=== PATIENT | male | born 1950 | race Caucasian/White ===

== ENCOUNTER → 2018-11-25 12:39 | Outpatient (CLI) | payer OTHER, SELFPAY ==
--- NOTE | 2018-11-25 | DI.ECHO.S_ITS ---
[facility] +---------+ : : [address] : : : : [id number] : : : : Phone: [phone] Echocardiogram Report + + :Name: SALMA BERNAL Study Date: 11/25/2018 Height: 70 in : :[facility] Weight: 166 lb : : Gender: Male BSA: 1.9 m2 : :: 1950 Age: 68 yrs BP: 128/82 mmHg: :Reason For Study: Aortic, Ascending Aneurysm : : Performed By: Sade Flannery : :Referring: LISANDRA HUA : + + Interpretation Summary The ejection fraction is estimated to be 60-65%. The calculated aortic valve area is 1.6 cm2. There is mild aortic stenosis. Leaflet mobility is mildly reduced. There is mild tricuspid regurgitation. The right ventricular systolic pressure is estimated to be at least 28 mmHg based on an estimated right atrial pressure of 3 mm Hg. The ascending aorta is mild-moderately enlarged. Procedure: A two-dimensional transthoracic echocardiogram with color flow and Doppler was performed. The study quality was technically good. There is no prior echocardiogram noted for this patient. The patient was in normal sinus rhythm during the exam. Left Ventricle: The left ventricle is normal in size, wall thickness, and systolic function without any focal wall motion abnormalities. The ejection fraction is estimated to be 60-65%. Left ventricular wall motion is normal. Diastolic parameters suggest probable normal left ventricular diastolic function and normal filling pressures. Right Ventricle: The right ventricle grossly appears normal in size with probable normal systolic function. Atria: The left atrium is moderately dilated. Right atrial size is normal. The interatrial septum is intact with no evidence for an atrial septal defect. Mitral Valve: There is mild mitral regurgitation. Aortic Valve: The aortic valve is trileaflet. The aortic valve is moderately calcified. Leaflet mobility is mildly reduced. There is discrete nodular thickening of the right coronary cusp. The aortic valve area is 2.7 centimeters squared by planimetry. The calculated aortic valve area is 1.6 cm2. The peak aortic velocity is 1.9 m/sec. There is mild aortic stenosis. There is mild aortic regurgitation. Tricuspid Valve: The tricuspid valve leaflets are thickened and/or calcified, but open well. There is mild tricuspid regurgitation. The right ventricular systolic pressure is estimated to be at least 28 mmHg based on an estimated right atrial pressure of 3 mm Hg. Pulmonic Valve: The pulmonic valve is not well visualized. There is trace pulmonic regurgitation. Great Vessels: The aortic root is borderline dilated. The ascending aorta is mild-moderately enlarged. The aortic arch is normal in size. The IVC is of normal diameter and collapses greater than 50% with a sniff. This suggests a low right atrial pressure of 3 mm Hg. Pericardium/ Pleura There is no pericardial effusion. There is no pleural effusion. MMode/2D Measurements & Calculations LVIDd: 4.8 cm LVOT diam: 2.2 cm LVIDs: 3.3 cm Ao root diam: 3.8 cm FS: 32.6 % Aortic Jxn: 3.6 cm EPSS: 0.91 cm asc Aorta Diam: 4.1 cm IVSd: 0.99 cm Ao Arch Diam (Prox Trans): 2.6 cm LVPWd: 0.97 cm LV mims. diameter/BSA (cm/m^2): 2.5 LV sys. diameter/BSA (cm/m^2): 1.7 LA dimension: 3.9 cm RA long axis: 5.2 cm LA A2 area: 24.4 cm2 RA area: 18.2 cm2 LA A4 area: 21.8 cm2 RA vol: 53.7 ml LA length (vol): 5.2 cm RA : 27.8 ml/m2 LA vol: 87.0 ml IVC diam: 1.7 cm LA vol index: 45.1 ml/m2 RVDd major: 6.2 cm RVD1 (basal): 3.8 cm RVD2 (mid): 3.5 cm ELIAS (plan): 2.7 cm2 Doppler Measurements & Calculations Ao V2 max: 194.4 cm/sec LVOT Max Yasmani: 76.2 cm/sec Ao V2 mean: 125.1 cm/sec LV V1 max P.3 mmHg Ao max P.1 mmHg LV V1 VTI: 17.6 cm Ao mean P.4 mmHg ELIAS(I,D): 1.6 cm2 Ao V2 VTI: 43.7 cm ELIAS(V,D): 1.5 cm2 sev ratio: 0.40 ELIAS indexed to BSA (cm^2/m^2): 0.81 MV E max yasmani: 60.7 cm/sec TR max yasmani: 248.4 cm/sec MV A max yasmani: 50.1 cm/sec TR max P.7 mmHg MV E/A: 1.2 PA V2 max: 104.1 cm/sec Med Peak E' Yasmani: 8.1 cm/sec PA V2 mean: 67.4 cm/sec E/E' med: 7.5 PA mean P.2 mmHg Lat Peak E' Yasmani: 10.4 cm/sec E/E' lat: 5.8 E/e' average: 6.7 MV dec time: 0.19 sec MV P1/2t: 39.1 msec MV P1/2t max yasmani: 82.0 cm/sec SV(LVOT): 68.0 ml MVA(P1/2t): 5.6 cm2 Reading Physician:04:06 PM
== END ==
PROVIDERS: PCP Family Medicine; Visit Provider Internal Medicine Cardiovascular Disease
DX: I08.3 Combined rheumatic disorders of mitral, aortic and tricuspid valves (principal); I71.2 Thoracic aortic aneurysm, without rupture
CPT/HCPCS: 93306

== ENCOUNTER 2020-12-20 00:13 | Observation (INO) | payer MEDICARE, OTHER, SELFPAY ==
[2020-12-20] VITALS (15 sets, daily range): BP systolic 120–143; BP diastolic 67–82; PULSE 67–74; RESP 15–20; TEMP 36.2–37.5; O2SAT 94–100; BMI 23.6
--- NOTE | 2020-12-20 00:18 | ED_ITS ---
HPI - Extremity Problem General Chief complaint: Skin/Abscess/Foreign Body Stated complaint: staph infection left leg Time Seen by Provider: 12/20/20 00:18 Source: patient and family Mode of arrival: Wheelchair Limitations: no limitations History of Present Illness HPI Narrative: 70M nonsmoker with history of hypertension presents with family friend and a chief complaint of worsening left lower extremity pain, redness, swelling along with fever and chills. He developed these symptoms initially about a week ago and was seen by primary care provider out in [place] and initiated treatment for presumed cellulitis and was placed on Augmentin. Additionally he had a ultrasound prior to getting on a plane and flying back to [place]. His symptoms are significantly worse now despite outpatient therapies. He denies any runny nose, sore throat or cough. He has no chest pain or shortness of breath. His pain is worse with ambulation and improves with rest Related Data Home Medications Medication Instructions Recorded Confirmed amlodipine 10 mg PO DAILY 12/20/20 12/20/20 hydrochlorothiazide 25 mg PO DAILY 12/20/20 12/20/20 losartan 100 mg PO DAILY 12/20/20 12/20/20 metoprolol succinate 50 mg PO DAILY 12/20/20 12/20/20 Allergies Allergy/AdvReac Type Severity Reaction Status Date / Time No Known Drug Allergies Allergy Verified 12/20/20 00:29 Review of Systems Constitutional Constitutional: Reports chills, Denies fatigue, Reports fever(s), Denies frequent falls, Denies lethargy and Denies weakness Eyes Eyes: Denies change in vision, Denies eye discharge, Denies irritation and Denies loss of vision ENT Ears, Nose, Mouth, and Throat: Denies change in voice, Denies dizziness, Denies neck pain, Denies sore throat and Denies throat swelling Cardiovascular Cardiovascular: Denies chest pain, Denies irregular heart rhythm, Denies ligh theadedness, Denies palpitations, Denies dyspnea, Denies dyspnea on exertion and Denies orthopnea Respiratory Respiratory: Denies cough, Denies dyspnea, Denies dyspnea on exertion and Denies wheezing Gastrointestinal Gastrointestinal: Denies abdominal pain, Denies change in bowel habits, Denies diarrhea, Denies nausea and Denies vomiting Musculoskeletal Musculoskeletal: Denies neck pain and Denies numbness Integumentary/Breasts Skin/Breast: Denies pruritus, Reports erythema, Denies rash, Reports skin pain, Reports skin swelling and Denies wounds Neurologic Neurologic: Denies behavioral changes, Denies confusion, Denies dizziness, Denies frequent falls, Denies loss of vision, Denies numbness and Denies weakness Psychiatric Psychiatric: Denies anxiety, Denies behavioral changes, Denies confusion, Denies depression, Denies homicidal ideation and Denies suicidal ideation Endocrine Endocrine: Denies fatigue, Denies flushing and Denies palpitations Hematologic/Lymphatic Hematologic/Lymphatic: Denies easy bruising Allergic/Immunologic Allergic/Immunologic: Denies urticaria, Denies throat swelling and Denies wheezing Patient History Social History Smoking Status: Never smoker Smoking Status: Never smoker Exam Narrative Exam Narrative: GENERAL: [70] year old patient appears stated age. Well- nourished, well-developed patient, in mild distress. HEAD: Atraumatic. Normocephalic. EYES: Pupils equal round and reactive. Extraocular motions intact. No scleral icterus. No injection or drainage. ENT: Nose without bleeding, purulent drainage. Throat without erythema, tonsillar hypertrophy or exudate. Airway patent. NECK: Trachea midline. Non tender CARDIOVASCULAR: Regular rate and rhythm without murmurs, gallops, or rubs. RESPIRATORY: Clear to auscultation. Breath sounds equal bilaterally. No wheezes, rales, or rhonchi. GASTROINTESTINAL: Abdomen soft, non-tender, nondistended. EXTREMITIES: Left lower extremity with extensive circumferential erythema, warmth, swelling below the knee and including the foot.. BACK: Nontender without deformity or crepitance. No flank tenderness. NEURO: AOx3. 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) Stat Acetaminophen (Acetaminophen 325 Mg Tablet) 650 mg PO Q6HR PRN PRN Reason: Fever/Mild Pain (1-3) Hydrocodone Bitart/Acetaminophen (Hydrocodone/Acet 5/325 Tablet) 1 tab PO Q4HR PRN PRN Reason: Pain, Moderate (4-6) Al Hydrox/Mg Hydrox/Simethicone (Mag Hydrox/Alum/Simeth 30 Ml Udc) 30 ml PO Q6HR PRN PRN Reason: Dyspepsia Docusate Sodium (Docusate 100 Mg Capsule) 100 mg PO BID PRN PRN Reason: Constipation Enoxaparin Sodium (Enoxaparin 40 Mg/0.4 Ml Syringe) 40 mg SUBCUT DAILY MUNA Sodium Chloride (Normal Saline 0.9%) 1,000 mls @ 125 mls/hr IV CONT MUNA Last Infusion: 12/20/20 01:37 Dose: 0 mls/hr Documented by: Admin: 12/20/20 00:43 Dose: 125 mls/hr Documented by: MARILU Vancomycin HCl/Dextrose (Vancomycin) 1,500 mg in 300 mls @ 200 mls/hr IV NOW ONE Stop: 12/20/20 01:57 Last Infusion: 12/20/20 01:37 Dose: 0 mls/hr Documented by: Admin: 12/20/20 00:43 Dose: 200 mls/hr Documented by: MARILU Lactated Ringer's (Lactated Ringers) 1,000 mls @ 100 mls/hr IV CONT MUNA Ketorolac Tromethamine (Ketorolac 10 Mg Tablet) 10 mg PO Q6HR PRN PRN Reason: Pain, Moderate (4-6) Stop: 12/25/20 01:26 Naloxone HCl (Naloxone 0.4 Mg/Ml Vial) 0.2 mg IV Q2MIN PRN PRN Reason: Opiate Reversal Ondansetron HCl (Ondansetron 4 Mg Odt) 4 mg PO Q8HR PRN PRN Reason: Nausea And Vomiting Sennosides (Sennosides 8.6 Mg Tablet) 17.2 mg PO BEDTIME PRN PRN Reason: Constipation Discontinued Medications Potassium Chloride (Potassium Chloride 20 Meq/15 Ml Udc) 40 meq PO NOW ONE Stop: 12/20/20 01:28 Consultations Consultation #1: call to hospitalist Time: 00:50 Vital Signs Vital signs: Vital Signs - 8 hr 12/20/20 00:26 Temperature 99.4 F Pulse Rate 71 Respiratory Rate 18 Blood Pressure 143/79 H Pulse Oximetry 100 MDM - Extremity (Nontraumatic) Lab Data Result diagrams: 12/20/20 00:30 12/20/20 00:30 Labs: Lab Results 12/20/20 12/20/20 12/20/20 Range/Units 00:30 00:30 00:30 WBC 8.8 (4.5-11.0) X10^3/uL RBC 4.42 L (4.5-5.9) X10^6/uL Hgb 14.3 (13.5-17.5) g/dL Hct 39.9 L (41-53) % MCV 90.2 (80-100) fL MCH 32.3 (26-34) PG MCHC 35.8 (30-36) % RDW 12.9 (11.6-14.8) % Plt Count 203 (150-400) X10^3/uL Neut % (Auto) 72.3 (50-75) % Lymph % (Auto) 16.0 L (25-40) % [place] % (Auto) 8.4 (3-14) % Eos % (Auto) 2.2 (2-4) % Baso % (Auto) 1.1 (0-2) % Neut # (Auto) 6400 (1115-5570) /uL Lymph # (Auto) 1400 (0030-7366) /uL [place] # (Auto) 700 (0-900) /uL Eos # (Auto) 200 (0-450) /uL Baso # (Auto) 100 (0-100) /uL D-Dimer 390 H (<230) ng/mL Sodium 135 L (137-145) mmol/L Potassium 3.2 L (3.4-5.1) mmol/L Chloride 100 (98-107) mmol/L Carbon Dioxide 27 (22-32) mmol/L BUN 27 H (9-20) mg/dL Creatinine 0.80 (0.66-1.25) mg/dL Estimated GFR > 60.0 (>60) mL/min BUN/Creatinine Ratio 33.8 H (6-22) Glucose 125 H (80-110) mg/dL Lactate (0.7-2.1) mmol/L Calcium 8.9 (8.4-10.2) mg/dL Total Bilirubin 0.6 (0.2-1.3) mg/dL AST 59 (17-59) IU/L ALT 55 H (<50) IU/L Alkaline Phosphatase 101 (38-126) U/L Total Protein 7.0 (6.3-8.2) g/dL Albumin 3.6 (3.5-5.0) g/dL Globulin 3.4 (1.7-4.1) g/dL Albumin/Globulin Ratio 1.1 (1.0-2.8) SARS-CoV-2 (PCR) (Negative) 12/20/20 12/20/20 Range/Units 00:30 00:40 WBC (4.5-11.0) X10^3/uL RBC (4.5-5.9) X10^6/uL Hgb (13.5-17.5) g/dL Hct (41-53) % MCV (80-100) fL MCH (26-34) PG MCHC (30-36) % RDW (11.6-14.8) % Plt Count (150-400) X10^3/uL Neut % (Auto) (50-75) % Lymph % (Auto) (25-40) % [place] % (Auto) (3-14) % Eos % (Auto) (2-4) % Baso % (Auto) (0-2) % Neut # (Auto) (5734-4585) /uL Lymph # (Auto) (8269-2044) /uL [place] # (Auto) (0-900) /uL Eos # (Auto) (0-450) /uL Baso # (Auto) (0-100) /uL D-Dimer (<230) ng/mL Sodium (137-145) mmol/L Potassium (3.4-5.1) mmol/L Chloride (98-107) mmol/L Carbon Dioxide (22-32) mmol/L BUN (9-20) mg/dL Creatinine (0.66-1.25) mg/dL Estimated GFR (>60) mL/min BUN/Creatinine Ratio (6-22) Glucose (80-110) mg/dL Lactate 0.8 (0.7-2.1) mmol/L Calcium (8.4-10.2) mg/dL Total Bilirubin (0.2-1.3) mg/dL AST (17-59) IU/L ALT (<50) IU/L Alkaline Phosphatase (38-126) U/L Total Protein (6.3-8.2) g/dL Albumin (3.5-5.0) g/dL Globulin (1.7-4.1) g/dL Albumin/Globulin Ratio (1.0-2.8) SARS-CoV-2 (PCR) Negative (Negative) MDM Narrative Medical decision making narrative: Patient has significantly worsening symptoms, including systemic complaints such as fever and chills despite being on what would be considered appropriate outpatient therapy Patient requires admission for IV antibiotics and stabilization of his condition Discharge Plan Departure Patient Disposition: Admitted as Observation Clinical Impression: Cellulitis Qualifiers: Site of cellulitis: extremity Site of cellulitis of extremity: lower extremity Laterality: left Qualified Code(s): L03.116 - Cellulitis of left lower limb Admit Date/Time: 12/20/20 01:21 Admit Provider: Josselin Villarreal
[2020-12-20 00:38] LABS: Basophils Absolute Auto 100 /uL (0-100); Eosinophils Absolute Auto 200 /uL (0-450); Lymphocytes Absolute Auto 1400 /uL (1100-4500); Monocytes Absolute Auto 700 /uL (0-900); Neutrophils Absolute Auto 6400 /uL (1500-7000); White Blood Cell Count 8.8 X10^3/uL (4.5-11.0)
[2020-12-20] MEDS: SODIUM CHLORIDE 0.9% 1,000 ML 125 ML IV (00:43)
[2020-12-20] MEDS: VANCOMYCIN 1,500 MG/300 ML PIGGYBACK 200 MG IV (00:43)
[2020-12-20 00:48] LABS: D Dimer 390 ng/mL (<230)
[2020-12-20 00:50] LABS: Add Manual Diff / Slide Review NO; Alanine Aminotransferase 55 IU/L (<50); Albumin 3.6 g/dL (3.5-5.0); Albumin Globulin Ratio 1.1 (1.0-2.8); Alkaline Phosphatase 101 U/L (38-126); Aspartate Aminotransferase 59 IU/L (17-59); BUN Creatinine Ratio 33.8 (6-22); Basophils Percent Auto 1.1 % (0-2); Bilirubin Total 0.6 mg/dL (0.2-1.3); Blood Urea Nitrogen 27 mg/dL (9-20); Calcium 8.9 mg/dL (8.4-10.2); Carbon Dioxide 27 mmol/L (22-32); Chloride 100 mmol/L (98-107); Eosinophils Percent Auto 2.2 % (2-4); Estimated Glomerular Filt Rate > 60.0 mL/min (>60); Globulin 3.4 g/dL (1.7-4.1); Glucose 125 mg/dL (80-110); HEMOLYSIS < 15 (0-50); Hematocrit 39.9 % (41-53); Hemoglobin 14.3 g/dL (13.5-17.5); Lactate (Lactic Acid) 0.8 mmol/L (0.7-2.1); Mean Corpuscular HGB Conc 35.8 % (30-36); Mean Corpuscular Hemoglobin 32.3 PG (26-34); Mean Corpuscular Volume 90.2 fL (80-100); Monocytes Percent Auto 8.4 % (3-14); Neutrophils Percent Auto 72.3 % (50-75); Platelet Count 203 X10^3/uL (150-400); Potassium 3.2 mmol/L (3.4-5.1); Red Blood Cell Count 4.42 X10^6/uL (4.5-5.9); Red Cell Distribution Width 12.9 % (11.6-14.8); Sodium 135 mmol/L (137-145)
[2020-12-20 01:35] LABS: COVID19 - ADMIT (NP swab/PCR) Negative (Negative)
[2020-12-20 01:49] LABS: C-Reactive Protein Quant 5.3 mg/dL (<1.0); Creatine Kinase 29 U/L (55-170)
[2020-12-20 02:04] LABS: Erythrocyte Sedimentation Rate 48 MM/HR (0-15)
--- NOTE | 2020-12-20 02:08 | PM.HP.1 ---
History of Present Illness History of Present Illness Date Patient Seen: 12/20/20 Time Patient Seen: 01:29 Chief complaint: staph infection left leg Narrative: Patient is a 70-year-old male Andrew Jose presented to the ED with a family friend with a chief complaint of worsening left lower extremity pain, redness, swelling along with fever and chills. He developed these symptoms initially and was seen by primary care provider on 12/15/2020 in [place] at his vacation home and initiated treatment for presumed cellulitis and was placed on Augmentin (5days). Additionally he had a ultrasound prior to getting on a plane and flying back to [place] which was negative for DVT. His symptoms continued to significantly worsen now despite outpatient therapies. Patient notes that the swelling has continued to increase and the lower leg began turning purplish in color yesterday. He denies any nasal drainage, sore throat, cough, fever, body aches, chills, chest pain or shortness of breath at this time. His pain is worse with ambulation and improves with rest. Patient current lease denies pain while resting bed. Patient has only a history of essential hypertension. Patient's vitals upon admit temp 99.4?, BP 143/79, HR 71, RR 18, O2 saturation 100% on room air. Patient's labs HCT 39.9, sodium 135, potassium 3.2, BUN 27, glucose 125, BUN creatinine ratio 33.8, ALT 55, D-dimer 390. Patient being admitted with left lower leg cellulitis after failing outpatient management, and hypokalemia. Patient History Medical History Essential hypertension Surgical History History of surgical fusion joint Family & Social History Family History (Updated 12/20/20 @ 04:07 by ROBERTO Contreras) Mother Hypertension Father Mesothelioma Sister Hypertension Tobacco & Substance use: Patient lives with his partner on [facility] and has a home in [place]. Patient is a retired middle school director. Smoking Status stop smoking 40 years ago Regularly eats THC edibles for sleep A glass a wine with dinner daily Meds Home Medications and Allergies Home Medications Medication Instructions Recorded Confirmed Type amlodipine 10 mg PO DAILY 12/20/20 12/20/20 History hydrochlorothiazide 25 mg PO DAILY 12/20/20 12/20/20 History losartan 100 mg PO DAILY 12/20/20 12/20/20 History metoprolol succinate 50 mg PO DAILY 12/20/20 12/20/20 History Allergies Allergy/AdvReac Type Severity Reaction Status Date / Time No Known Drug Allergies Allergy Verified 12/20/20 00:29 Review of Systems Review of Systems ROS: Yes All systems reviewed with the patient and are negative except as otherwise documented Musculoskeletal Musculoskeletal: Reports limited range of motion Integumentary/Breasts Skin/Breast: Reports change in pigmentation (Left lower leg), Reports erythema, Reports skin pain and Reports skin swelling Exam Vital Signs (past 8 hours): - 12/20/20 00:26 12/20/20 01:54 Temperature 99.4 F Pulse Rate 71 Respiratory Rate 18 Blood Pressure 143/79 H Pulse Oximetry 100 99 Oxygen Delivery Method Room Air Oxygen Flow Rate 0 Narrative Exam Narrative: General: Patient is a delightful well-developed, well-nourished male in no distress at this time. HEENT: Normocephalic, atraumatic, extraocular muscles intact, oral pharynx is clear and mucous membranes are moist. Neck is supple and symmetric, trachea is midline, no adenopathy, no thyroid enlargement, nontender, no masses palpated. Negative for JVD Chest: Normal AP diameter and contour without kyphoscoliosis, no nasal flaring, retractions, or tachypneic labored Lungs: Auscultation of all lung chahal are clear without adventitious sounds, wheezes, rhonchi, or rales. Cardio: S1 & S2 with regular rate and rhythm without murmur, rubs, or gallops, no carotid bruit, no cardiac pulsations present. Abdomen: Soft nontender, negative for organomegaly, or masses. Bowel sounds are present in all 4 quadrants without guarding or rebound, no CVA tenderness. Musculoskeletal: Muscle strength normal. Full range of motion intact radial and pedal pulses are normal. Patient has noted cellulitis clear demarcation just below left knee down to left ankle, dark purple in color non blanchable noted inflammation that encompasses the lower left knee down to include left foot. Closed without noted drainage or exudate present at this time. Neuro: Alert and orientated x3, strength is +5/5 in all extremities, sensation to touch intact, no gross deficits noted of cranial nerves. Psych: Patient has a well-kept appearance, appropriate affect, mental status attitude thought context and judgment are appropriate for age. Objective Labs Result Diagrams: 12/20/20 00:30 12/20/20 00:30 Labs: Laboratory Results - last 24 hr 12/20/20 12/20/20 12/20/20 00:30 00:30 00:30 WBC 8.8 RBC 4.42 L Hgb 14.3 Hct 39.9 L MCV 90.2 MCH 32.3 MCHC 35.8 RDW 12.9 Plt Count 203 Neut % (Auto) 72.3 Lymph % (Auto) 16.0 L [place] % (Auto) 8.4 Eos % (Auto) 2.2 Baso % (Auto) 1.1 Neut # (Auto) 6400 Lymph # (Auto) 1400 [place] # (Auto) 700 Eos # (Auto) 200 Baso # (Auto) 100 ESR D-Dimer 390 H Sodium 135 L Potassium 3.2 L Chloride 100 Carbon Dioxide 27 BUN 27 H Creatinine 0.80 Estimated GFR > 60.0 BUN/Creatinine Ratio 33.8 H Glucose 125 H Lactate Calcium 8.9 Total Bilirubin 0.6 AST 59 ALT 55 H Alkaline Phosphatase 101 Total Creatine Kinase C-Reactive Protein Total Protein 7.0 Albumin 3.6 Globulin 3.4 Albumin/Globulin Ratio 1.1 SARS-CoV-2 (PCR) 12/20/20 12/20/20 12/20/20 00:30 00:30 00:30 WBC RBC Hgb Hct MCV MCH MCHC RDW Plt Count Neut % (Auto) Lymph % (Auto) [place] % (Auto) Eos % (Auto) Baso % (Auto) Neut # (Auto) Lymph # (Auto) [place] # (Auto) Eos # (Auto) Baso # (Auto) ESR 48 H D-Dimer Sodium Potassium Chloride Carbon Dioxide BUN Creatinine Estimated GFR BUN/Creatinine Ratio Glucose Lactate 0.8 Calcium Total Bilirubin AST ALT Alkaline Phosphatase Total Creatine Kinase 29 L C-Reactive Protein 5.3 H Total Protein Albumin Globulin Albumin/Globulin Ratio SARS-CoV-2 (PCR) 12/20/20 00:40 WBC RBC Hgb Hct MCV MCH MCHC RDW Plt Count Neut % (Auto) Lymph % (Auto) [place] % (Auto) Eos % (Auto) Baso % (Auto) Neut # (Auto) Lymph # (Auto) [place] # (Auto) Eos # (Auto) Baso # (Auto) ESR D-Dimer Sodium Potassium Chloride Carbon Dioxide BUN Creatinine Estimated GFR BUN/Creatinine Ratio Glucose Lactate Calcium Total Bilirubin AST ALT Alkaline Phosphatase Total Creatine Kinase C-Reactive Protein Total Protein Albumin Globulin Albumin/Globulin Ratio SARS-CoV-2 (PCR) Negative Assessment & Plan Assessment & Plan narrative: This patient requires acute care inpatient hospital management for lower left leg cellulitis, after failing outpatient management of 5 days with Augmentin. The patient is at much higher risk for medical and surgical complications because of his history of 2 previous episodes of staph cellulitis infections. These factors increase the difficulty and complexity of medical and surgical interventions and increases the chances of poor outcomes such as morbidity and mortality, as well as complications such as a risk for MRSA, osteomyelitis, and gas gangrene necrotizing fasciitis. Patient will need to be admitted for observation for IV antibiotics. 1.Cellulitis left lower leg, acute, nonpurulent, present on admission -rule out osteomyelitis, gas gangrene necrotizing fasciitis. Determine if infection is staph/MRSA-blood cultures pending. -Patient's vitals upon admit temp 99.4?, BP 143/79, HR 71, RR 18, O2 saturation 100% on room air. Patient's labs HCT 39.9, sodium 135, potassium 3.2, BUN 27, glucose 125, BUN creatinine ratio 33.8, ALT 55, D-dimer 390. Patient being admitted with left lower leg cellulitis after failing outpatient management, and hypokalemia. -patient admitted for D-dimer 390, lipase negative, procalcitonin in am , left lower leg ultrasound on: 12/15/2020 negative for DVT. -ESR and CRP ordered to help rule out osteomyelitis, if suspicion is high for osteomyelitis order x-ray then on MRI. -elevate affected leg, If patient not improving on vancomycin-may consider CT with contrast to rule out abscess or deep infection. -monitor for hyponatremia, elevated CPK or AST -wells criteria score: 3 , Sofa score: 0 -patient for observation, vital signs q.4 hours, intake and output monitored Q shift, weight measure daily, diet: Regular, IV fluids: LR at 100 cc/hour. -patient had a dose of vancomycin in the ED, ordered vancomycin per pharmacy -daily labs ordered CBC, CMP, PT INR. Procalcitonin Qam -if patient responds well next 24 hours to the vancomycin and based on blood culture results patient should require no more than 48 hours hospitalization. 2. Hypokalemia, acute, present on admission -patient admits potassium 3.2, ordered oral 40 mEq recheck lab in am. 3. Essential hypertension, acute on chronic, present on admission, well controlled -continue patient's home medications amlodipine, HCTZ, losartan, metoprolol Code status:Full Surrogate/plan of care:Spouse Nolberto AGUILAR PCR:Negative VTE prophylaxis: Lovenox 40 mg and SCDs Scores SOFA PaO2/FIO2: >=400 mmHg Platelets: >= 150 Bilirubin: < 1.2 mg/dL Hypotension: MAP >= 70 mmHg [place] Coma Scale: 15 Renal: < 1.2 mg/dL SOFA Score: 0 Wells' Criteria for PE Clinical signs and symptoms of DVT: Yes PE is #1 Dx or equally likely: No Heart rate > 100: No Immobilization at least 3 days or surg in previous 4 weeks: No History of PE or DVT: No Hemoptysis: No Malignancy w/Treatment within 6 months or palliative: No Wells' PE Score total: 3
[2020-12-20] MEDS: LACTATED RINGERS 1,000 ML 100 ML IV ×2 (02:40→17:32)
--- NOTE | 2020-12-20 02:54 | PC.NURSE ---
Pt to room 212 via w/c from ED. Alert and Oriented x 3. Spouse at the bedside. Denies pain to his leg unless he is standing on it. Left leg is very swollen and erythemic with red blistering from knee to toes. Oriented Pt to room, call light, tv controls, and bed controls. IV infusing as ordered. Reddened area to left leg outlined in Sharpie. Pt declines pain meds at this time. Pt agrees to call for assistance as needed and to not get up without help.
[2020-12-20] MEDS: POTASSIUM CHLORIDE 20 MEQ TAB 40 MEQ PO ×2 (03:20→10:25)
[2020-12-20 05:36] LABS: Alanine Aminotransferase 45 IU/L (<50); Albumin 2.9 g/dL (3.5-5.0); Alkaline Phosphatase 77 U/L (38-126); Aspartate Aminotransferase 45 IU/L (17-59); BUN Creatinine Ratio 30.6 (6-22); Bilirubin Total 0.5 mg/dL (0.2-1.3); Blood Urea Nitrogen 22 mg/dL (9-20); Calcium 8.1 mg/dL (8.4-10.2); Carbon Dioxide 25 mmol/L (22-32); Chloride 102 mmol/L (98-107); Estimated Glomerular Filt Rate > 60.0 mL/min (>60); Globulin 2.8 g/dL (1.7-4.1); Glucose 107 mg/dL (80-110); HEMOLYSIS < 15 (0-50); Potassium 3.1 mmol/L (3.4-5.1); Sodium 134 mmol/L (137-145); Total Protein 5.7 g/dL (6.3-8.2)
[2020-12-20 05:51] LABS: Add Manual Diff / Slide Review NO; Basophils Absolute Auto 0 /uL (0-100); Basophils Percent Auto 0.5 % (0-2); Eosinophils Absolute Auto 200 /uL (0-450); Eosinophils Percent Auto 2.6 % (2-4); Hematocrit 34.1 % (41-53); Hemoglobin 12.2 g/dL (13.5-17.5); Lymphocytes Absolute Auto 1300 /uL (1100-4500); Lymphocytes Percent Auto 18.9 % (25-40); Mean Corpuscular HGB Conc 35.9 % (30-36); Mean Corpuscular Hemoglobin 32.4 PG (26-34); Mean Corpuscular Volume 90.2 fL (80-100); Monocytes Absolute Auto 600 /uL (0-900); Neutrophils Absolute Auto 4600 /uL (1500-7000); Platelet Count 169 X10^3/uL (150-400); Red Blood Cell Count 3.78 X10^6/uL (4.5-5.9); Red Cell Distribution Width 12.9 % (11.6-14.8); White Blood Cell Count 6.7 X10^3/uL (4.5-11.0)
[2020-12-20 05:52] LABS: Procalcitonin 0.25 ng/mL (<0.5)
[2020-12-20] MEDS: ENOXAPARIN 40 MG/0.4 ML SYRINGE SUBCUT (09:09)
[2020-12-20] MEDS: AMLODIPINE 5 MG TABLET 10 MG PO (09:09)
[2020-12-20] MEDS: LOSARTAN 50 MG TABLET 100 MG PO (09:09)
[2020-12-20] MEDS: hydroCHLOROthiazide 25 MG TABLET PO (09:09)
[2020-12-20] MEDS: METOPROLOL ER 50 MG TABLET PO (09:09)
[2020-12-20] MEDS: VANCOMYCIN 1,000 MG/200 ML PIGGYBACK 200 MG IV ×2 (09:10→17:20)
--- NOTE | 2020-12-20 10:33 | P.PN_ITS ---
Subjective Subjective Date Patient Seen: 12/20/20 Time Patient Seen: 08:34 Interval history: Today he feels his leg is slightly improved. Still has pain with movement. He feels swelling and area of erythema have improved. Otherwise no concerns. Exam Vital Signs (past 8 hours): - 12/20/20 08:00 12/20/20 09:09 Temperature 99 F Pulse Rate 74 74 Respiratory Rate 18 Blood Pressure 135/71 137/71 Pulse Oximetry 96 Oxygen Delivery Method Room Air Oxygen Flow Rate 0 Narrative Exam Narrative: General: no acute distress HEENT: Normocephalic, atraumatic, extraocular muscles intact, mucous membranes are moist. Lungs: clear bilaterally Cardio: regular rate and rhythm without murmur, rubs, or gallops Abdomen: Soft nontender, no organomegaly, normal bowel sounds Musculoskeletal: Muscle strength normal. Full range of motion. normal pedal pulses. Left leg below the knee is swollen, painful, erythematous that extends to the foot and wraps around the leg. Has some blisters with edema. No fluctuance or masses palpated. No crepitus. Neuro: Alert and orientated x3, strength normal in all extremities, sensation to touch intact Psych: pleasant mood. Objective Labs Result Diagrams: 12/20/20 05:11 12/20/20 05:11 Labs: Laboratory Results - last 24 hr 12/20/20 12/20/20 12/20/20 00:30 00:30 00:30 WBC 8.8 RBC 4.42 L Hgb 14.3 Hct 39.9 L MCV 90.2 MCH 32.3 MCHC 35.8 RDW 12.9 Plt Count 203 Neut % (Auto) 72.3 Lymph % (Auto) 16.0 L [place] % (Auto) 8.4 Eos % (Auto) 2.2 Baso % (Auto) 1.1 Neut # (Auto) 6400 Lymph # (Auto) 1400 [place] # (Auto) 700 Eos # (Auto) 200 Baso # (Auto) 100 ESR D-Dimer 390 H Sodium 135 L Potassium 3.2 L Chloride 100 Carbon Dioxide 27 BUN 27 H Creatinine 0.80 Estimated GFR > 60.0 BUN/Creatinine Ratio 33.8 H Glucose 125 H Lactate Calcium 8.9 Total Bilirubin 0.6 AST 59 ALT 55 H Alkaline Phosphatase 101 Total Creatine Kinase C-Reactive Protein Total Protein 7.0 Albumin 3.6 Globulin 3.4 Albumin/Globulin Ratio 1.1 Procalcitonin SARS-CoV-2 (PCR) 12/20/20 12/20/20 12/20/20 00:30 00:30 00:30 WBC RBC Hgb Hct MCV MCH MCHC RDW Plt Count Neut % (Auto) Lymph % (Auto) [place] % (Auto) Eos % (Auto) Baso % (Auto) Neut # (Auto) Lymph # (Auto) [place] # (Auto) Eos # (Auto) Baso # (Auto) ESR 48 H D-Dimer Sodium Potassium Chloride Carbon Dioxide BUN Creatinine Estimated GFR BUN/Creatinine Ratio Glucose Lactate 0.8 Calcium Total Bilirubin AST ALT Alkaline Phosphatase Total Creatine Kinase 29 L C-Reactive Protein 5.3 H Total Protein Albumin Globulin Albumin/Globulin Ratio Procalcitonin SARS-CoV-2 (PCR) 12/20/20 12/20/20 12/20/20 00:40 05:11 05:11 WBC 6.7 RBC 3.78 L Hgb 12.2 L Hct 34.1 L MCV 90.2 MCH 32.4 MCHC 35.9 RDW 12.9 Plt Count 169 Neut % (Auto) 69.0 Lymph % (Auto) 18.9 L [place] % (Auto) 9.0 Eos % (Auto) 2.6 Baso % (Auto) 0.5 Neut # (Auto) 4600 Lymph # (Auto) 1300 [place] # (Auto) 600 Eos # (Auto) 200 Baso # (Auto) 0 ESR D-Dimer Sodium 134 L Potassium 3.1 L Chloride 102 Carbon Dioxide 25 BUN 22 H Creatinine 0.72 Estimated GFR > 60.0 BUN/Creatinine Ratio 30.6 H Glucose 107 Lactate Calcium 8.1 L Total Bilirubin 0.5 AST 45 ALT 45 Alkaline Phosphatase 77 Total Creatine Kinase C-Reactive Protein Total Protein 5.7 L Albumin 2.9 L Globulin 2.8 Albumin/Globulin Ratio 1.0 Procalcitonin SARS-CoV-2 (PCR) Negative 12/20/20 05:11 WBC RBC Hgb Hct MCV MCH MCHC RDW Plt Count Neut % (Auto) Lymph % (Auto) [place] % (Auto) Eos % (Auto) Baso % (Auto) Neut # (Auto) Lymph # (Auto) [place] # (Auto) Eos # (Auto) Baso # (Auto) ESR D-Dimer Sodium Potassium Chloride Carbon Dioxide BUN Creatinine Estimated GFR BUN/Creatinine Ratio Glucose Lactate Calcium Total Bilirubin AST ALT Alkaline Phosphatase Total Creatine Kinase C-Reactive Protein Total Protein Albumin Globulin Albumin/Globulin Ratio Procalcitonin 0.25 SARS-CoV-2 (PCR) [facility] Medical History Essential hypertension Surgical History History of surgical fusion joint Family History (Updated 12/20/20 @ 04:07 by ROBERTO Contreras) Mother Hypertension Father Mesothelioma Sister Hypertension Social History household members: significant other Smoking Status: Never smoker alcohol intake: current Assessment & Plan Assessment & Plan narrative: Mr Vieyra was admitted for left leg cellulitis after failing four days of outpatient oral antibiotics with Augmentin. 1.Cellulitis left lower leg, acute, nonpurulent, present on admission -patient being admitted with left lower leg cellulitis after failing outpatient management -patient admitted for D-dimer 390, lipase negative, procalcitonin in am , left lower leg ultrasound on: 12/15/2020 negative for DVT. -elevate affected leg, If patient not improving on vancomycin -may consider CT with contrast to rule out abscess or deep infection. -patient for observation, vital signs q.4 hours, intake and output monitored Q shift, weight measure daily, diet: Regular, IV fluids: LR at 100 cc/hour. -patient had a dose of vancomycin in the ED, ordered vancomycin per pharmacy -daily labs ordered CBC, CMP, PT INR. Procalcitonin Qam -if patient responds well next 24 hours to the vancomycin and based on blood culture results patient should require no more than 48 hours hospitalization. 2. Hypokalemia, acute, present on admission -patient admits potassium 3.1, ordered oral 80 mEq recheck lab in am. 3. Essential hypertension, acute on chronic, present on admission, well controlled -continue patient's home medications amlodipine, HCTZ, losartan, metoprolol Code status:Full Surrogate/plan of care:Spouse Nolberto Price COVID PCR:Negative VTE prophylaxis: Lovenox 40 mg and SCDs Time Spent With Patient Time with patient: 15-24 minutes Quality VTE Deep Vein Thrombosis/Pulmonary Embolism Present on Admission: No
--- NOTE | 2020-12-20 10:57 | PC.NURSE ---
Addendum entered by Denae Grove R.N. 12/20/20 12:04: Noted temp of 99.5, spoke with patient about Tylenol, patient declined at this time. Will continue to monitor. Original Note: Patient A/O x 4. Up to restroom with SBA. Denies needing walker, denies pain. LLE is warm, erythemic, tight, with notable blister on superior anterior aspect, non draining. Pulses equal bilaterally. Redness is receding from previously marked outline. LLE remains elevated. Patient denies pain. L AC IV, patent ABX infusing, patient tolerating. LR @100cc/hr. Lungs CTA, 99% on RA, denies SOB or increased WOB with activity. Patient voiding using urinal, last BM 12/20. Tolerating general diet, call light in reach. Nolberto remains bedside.
[2020-12-20] MEDS: ACETAMINOPHEN 325 MG TABLET 650 MG PO (14:17)
--- NOTE | 2020-12-20 14:47 | CM.DANOTE ---
DCP/Assessment: Reviewed chart. Patient is a 70yr old male admitted to [facility] with left lower leg cellulitis. PCP listed is Blas Keen. Primary payor is 1)Med[employer] 2)[employer]. Met patient this AM in rounds. Patient alert, oriented and Independent in all ADL's. Provider anticipates that patient will be medically stable tomorrow. Patient denies any d/c planning needs. P: Home when stable. EMILIANO Mijares Discharge Planning/Care Management CM Discharge Assessment Start: 12/20/20 14:01 Freq: Status: Active Protocol: Document 12/20/20 14:01 KJS (Rec: 12/20/20 14:05 KJS [id number]) Discharge Planning Assessment Assigned [employer] EMILIANO Mijares Contact Information Vincenzo Velazquez (spouse) ph# Advance Directives? No History Provided By Patient,Medical Record Prior Living Arrangements House Household Members significant other Type of transporation used prior to Drives own vehicle admit Independent with ADL's Yes Is patient alert and oriented? Yes Barriers to Discharge No Discharge Plan Home Transportation Arrangement Family to provide transport. Review Status In Process Next Review Type Continued Stay Review Document 12/20/20 14:47 KJS (Rec: 12/20/20 14:47 KJS [id number]) Discharge Planning Assessment Assigned Inspector [employer] EMILIANO Mijares Contact Information Vincenzo Velazquez (spouse) ph# Advance Directives? No History Provided By Patient,Medical Record Prior Living Arrangements House Household Members significant other Type of transporation used prior to Drives own vehicle admit Independent with ADL's Yes Is patient alert and oriented? Yes Barriers to Discharge No Discharge Plan Home Transportation Arrangement Family to provide transport. Review Status In Process Next Review Type Continued Stay Review
--- NOTE | 2020-12-20 18:36 | PC.NURSE ---
Addendum entered by Geno Guerrero R.N. 12/20/20 22:28: Pt denies discomfort when asked LLE remains essentially unchanged. IVF discontinued per VETERINARY VIRUS SERUM INSPECTOR SCD in place. Call light w/in reach, calls appropriately for needs. Continue w/plan of care. Original Note: Pt in bed w/left lower leg elevated on pillows. SpO2 98% RA Denies discomfort @ this time. LLE purplish in color, red, swollen & tender to touch Pulses +++ IV LR infusing into the LAC as per orders via pump w/incidence Call light w/in reach, Pt calls appropriately for needs.
--- NOTE | 2020-12-20 23:29 | PC.NURSE ---
Addendum entered by Natty Rowland R.N. 12/21/20 01:34: Lying awake and states he is unable to sleep due to back discomfort which he rates as 4/10 and describes as annoying; medicated with Tylenol. Original Note: patient is alert and oriented. Breath sounds CTA with RA sat of 97%. HRR. Denies nausea. BT present and abdomen is soft; reports having BM earlier today. Denies dysuria, frequency or urgency; using urinal in bed. Able to turn himself. Gait not assessed at this time but reports he was up to bathroom earlier with SBA; denied weakness. Left LE is burgundy color with blistered appearance; has 2+ edema from below knee down and skin is warm to touch. Denies tingling/numbness/pain. Wearing right LE calf SCD. States back is sore but declines offer of pain medication. Fall risk score is low.
[2020-12-21] MEDS: VANCOMYCIN 1,000 MG/200 ML PIGGYBACK 200 MG IV ×2 (01:27→09:37)
[2020-12-21] MEDS: SODIUM CHLORIDE 0.9% FLUSH 10 ML IV ×2 (01:27→08:44)
[2020-12-21] MEDS: ACETAMINOPHEN 325 MG TABLET 650 MG PO (01:32)
[2020-12-21 04:30] VITALS: BP 119/78; PULSE 67; RESP 16; TEMP 36.6; O2SAT 97
[2020-12-21 06:11] LABS: Alanine Aminotransferase 46 IU/L (<50); Alkaline Phosphatase 83 U/L (38-126); Aspartate Aminotransferase 45 IU/L (17-59); BUN Creatinine Ratio 23.6 (6-22); Bilirubin Total 0.5 mg/dL (0.2-1.3); Blood Urea Nitrogen 17 mg/dL (9-20); Calcium 8.5 mg/dL (8.4-10.2); Carbon Dioxide 27 mmol/L (22-32); Chloride 102 mmol/L (98-107); Estimated Glomerular Filt Rate > 60.0 mL/min (>60); Glucose 103 mg/dL (80-110); HEMOLYSIS < 15 (0-50); Potassium 3.9 mmol/L (3.4-5.1); Sodium 135 mmol/L (137-145)
[2020-12-21 06:18] LABS: Add Manual Diff / Slide Review NO; Basophils Absolute Auto 100 /uL (0-100); Basophils Percent Auto 0.8 % (0-2); Eosinophils Absolute Auto 200 /uL (0-450); Eosinophils Percent Auto 3.2 % (2-4); Hematocrit 35.6 % (41-53); Hemoglobin 12.6 g/dL (13.5-17.5); Lymphocytes Absolute Auto 1400 /uL (1100-4500); Lymphocytes Percent Auto 21.5 % (25-40); Mean Corpuscular HGB Conc 35.5 % (30-36); Mean Corpuscular Hemoglobin 32.2 PG (26-34); Mean Corpuscular Volume 90.9 fL (80-100); Monocytes Absolute Auto 500 /uL (0-900); Neutrophils Absolute Auto 4300 /uL (1500-7000); Neutrophils Percent Auto 66.5 % (50-75); Platelet Count 208 X10^3/uL (150-400); Red Blood Cell Count 3.92 X10^6/uL (4.5-5.9); Red Cell Distribution Width 12.8 % (11.6-14.8); White Blood Cell Count 6.5 X10^3/uL (4.5-11.0)
[2020-12-21] MEDS: hydroCHLOROthiazide 25 MG TABLET PO (08:42)
[2020-12-21] MEDS: ENOXAPARIN 40 MG/0.4 ML SYRINGE SUBCUT (08:42)
[2020-12-21 08:43] VITALS: BP 136/84; PULSE 70
[2020-12-21] MEDS: AMLODIPINE 5 MG TABLET 10 MG PO (08:43)
[2020-12-21] MEDS: LOSARTAN 50 MG TABLET 100 MG PO (08:43)
[2020-12-21] MEDS: METOPROLOL ER 50 MG TABLET PO (08:43)
[2020-12-21 09:00] VITALS: RESP 18; TEMP 36.5; O2SAT 96
[2020-12-21 09:25] LABS: Vancomycin Trough 13.6 ug/mL (10-20)
[2020-12-21] MEDS: SODIUM CHLORIDE 0.9% 250 ML 21 ML IV (09:37)
--- NOTE | 2020-12-21 11:38 | PC.NURSE ---
Pt discharge education given to pt and spouse, discussed- medications, worsening symptoms, f/u appts, activity, diet, s/s of stroke and reasons to seek medical attention. All questions answered. Pt dressed and packed up belongings independently. IV removed, intact, tolerated well. Pt left via w/c accompanied by BINDERY LIBRARY TECHNICAL ASSISTANT to spouse's POV.
--- NOTE | 2020-12-21 11:53 | P.DS_ITS ---
History of Present Illness History of Present Illness Chief complaint: staph infection left leg Narrative: Per H and P from Josselin Villarreal 12/20/20: Patient is a 70-year-old male Andrew Jose presented to the ED with a family friend with a chief complaint of worsening left lower extremity pain, redness, swelling along with fever and chills. He developed these symptoms initially and was seen by primary care provider on 12/15/2020 in [place] at his vacation home and initiated treatment for presumed cellulitis and was placed on Augmentin (5days). Additionally he had a ultrasound prior to getting on a plane and flying back to [place] which was negative for DVT. His symptoms continued to significantly worsen now despite outpatient therapies. Patient notes that the swelling has continued to increase and the lower leg began turning purplish in color yesterday. He denies any nasal drainage, sore throat, cough, fever, body aches, chills, chest pain or shortness of breath at this time. His pain is worse with ambulation and improves with rest. Patient current lease denies pain while resting bed. Patient has only a history of essential hypertension. Patient's vitals upon admit temp 99.4?, BP 143/79, HR 71, RR 18, O2 saturation 100% on room air. Patient's labs HCT 39.9, sodium 135, potassium 3.2, BUN 27, glucose 125, BUN creatinine ratio 33.8, ALT 55, D-dimer 390. Patient being admitted with left lower leg cellulitis after failing outpatient management, and hypokalemia. Discharge Providers Provider Date of admission: 12/20/20 01:21 Discharge Date: 12/21/20 Primary care physician: Blas Keen MD Discharge provider: Narinder Bridges MD Summary Hospital Course Discharge Diagnosis: 1. Cellulitis, left leg, acute 2. Hypokalemia 3. Hypertension Hospital Course: Mr. Vieyra was admitted with worsening left leg cellulitis despite 4 days of treatment as an outpatient with antibiotics on Augmentin. He was noted to have normal vital signs and no elevated white count. His left leg had significant erythema, swelling and he was started on vancomycin. He had good improvement on IV antibiotics. On day of discharge he had clear reduction in erythema and swelling. He was discharged on a 7 day course of antibiotics with keflex and doxycycline. His blood pressure was well controlled in the hospital. He slight hypokalemia in the hospital that improved with potassium repletion. Discharge time: 30 minutes Code status: Full Status at Discharge Cognitive/behavioral status at discharge: oriented Functional status at discharge: independent ambulation Overall status at discharge: patient is progressing back to baseline Exam Vital Signs (past 8 hours): - 12/21/20 04:30 12/21/20 08:43 12/21/20 09:00 Temperature 97.9 F 97.7 F Pulse Rate 67 70 Respiratory Rate 16 18 Blood Pressure 119/78 136/84 Pulse Oximetry 97 96 Oxygen Delivery Method Room Air Oxygen Flow Rate 0 Narrative Exam Narrative: General: no acute distress HEENT: Normocephalic, atraumatic, extraocular muscles intact, mucous membranes are moist. Lungs: clear bilaterally Cardio: regular rate and rhythm without murmur, rubs, or gallops Abdomen: Soft nontender, no organomegaly, normal bowel sounds Musculoskeletal: Muscle strength normal. Full range of motion. normal pedal pulses. Left leg below the knee is swollen, painful, erythematous that extends to the foot and wraps around the leg. Has some blisters with edema. Improving on 12/21 with notably less erythema and swelling. No fluctuance or masses palpated. No crepitus. Neuro: Alert and orientated x3, strength normal in all extremities, sensation to touch intact Psych: pleasant mood. Objective Labs Result Diagrams: 12/21/20 05:44 12/21/20 05:44 Labs: Laboratory Results - last 24 hr 12/21/20 12/21/20 12/21/20 05:44 05:44 08:24 WBC 6.5 RBC 3.92 L Hgb 12.6 L Hct 35.6 L MCV 90.9 MCH 32.2 MCHC 35.5 RDW 12.8 Plt Count 208 Neut % (Auto) 66.5 Lymph % (Auto) 21.5 L [place] % (Auto) 8.0 Eos % (Auto) 3.2 Baso % (Auto) 0.8 Neut # (Auto) 4300 Lymph # (Auto) 1400 [place] # (Auto) 500 Eos # (Auto) 200 Baso # (Auto) 100 Sodium 135 L Potassium 3.9 Chloride 102 Carbon Dioxide 27 BUN 17 Creatinine 0.72 Estimated GFR > 60.0 BUN/Creatinine Ratio 23.6 H Glucose 103 Calcium 8.5 Total Bilirubin 0.5 AST 45 ALT 46 Alkaline Phosphatase 83 Total Protein 6.0 L Albumin 3.0 L Globulin 3.0 Albumin/Globulin Ratio 1.0 Vancomycin Trough 13.6 PFSH Medical History Essential hypertension Surgical History History of surgical fusion joint Family History (Updated 12/20/20 @ 04:07 by PATRICIA Contreras-MILI) Mother Hypertension Father Mesothelioma Sister Hypertension Social History household members: significant other Smoking Status: Never smoker alcohol intake: current Discharge Plan Discharge Plan Patient Disposition: Home Provider Discharge Comment: Mr. Vieyra was admitted with a skin infection (cellulitis). He had already been on oral antibiotics, so was started on IV antibiotics in the hospital. He did well and started improving with IV medications. On day of discharge he still had redness and swelling of his leg but it was noticeably decreasing. He was recommended to have 7 days of antibiotics to treat his infection. Discharge orders & Medications Prescriptions: New doxycycline monohydrate 100 mg capsule 100 mg PO BID Qty: 14 RF: 0 cephalexin 500 mg capsule 500 mg PO QID Qty: 28 RF: 0 Continued metoprolol succinate 50 mg tablet extended release 24 hr 50 mg PO DAILY RF: 0 amlodipine 10 mg tablet 10 mg PO DAILY RF: 0 hydrochlorothiazide 25 mg tablet 25 mg PO DAILY RF: 0 losartan 100 mg tablet 100 mg PO DAILY RF: 0 Follow up/Referrals: Blas Keen MD [Primary Care Provider] - Discharge Health Status Multidrug resistant organism: No MDRO Diet/Activity/Treatments Diet: Diet as Tolerated Visit Report/Discharge Packet Instructions: DI for Cellulitis -- Adult Discharge Data Primary Care Provider: Blas Keen Attending Provider: Josselin Villarreal Quality VTE Deep Vein Thrombosis/Pulmonary Embolism Present on Admission: No MIPS - DC The patient has current or prior documentation of left ventricular ejection fraction (LVEF) less than 40%, or moderate or severely depressed left ventricul ar systolic function.: No
== END 2020-12-21 11:40 | disposition home or self-care (01) ==
LOC: ED 01:04 → AC 01:24
PROVIDERS: Admitting Provider Nurse Practitioner Family; Emergency Provider Emergency Medicine; PCP Family Medicine; Referring Provider Emergency Medicine; Visit Provider Nurse Practitioner Family
DX: L03.116 Cellulitis of left lower limb (principal); E87.6 Hypokalemia; I10 Essential (primary) hypertension; Z20.822 Contact with and (suspected) exposure to COVID-19
CPT/HCPCS: 36415; 80053; 80202; 82550; 83605; 84145; 85025; 85379; 85651; 86140; 87040; 87635; 96361; 96365; 96366; 96372; 99284; C9803; G0378; J1650

== ENCOUNTER → 2021-04-04 14:44 | Outpatient (CLI) | payer MEDICARE, OTHER, SELFPAY ==
[2020-12-20 02:09] VITALS: BMI 23.6
== END ==
PROVIDERS: PCP Family Medicine; Visit Provider Family Medicine
DX: L03.90 Cellulitis, unspecified (principal)
CPT/HCPCS: 87070

== ENCOUNTER → 2021-09-26 13:11 | Outpatient (CLI) | payer MEDICARE, OTHER, SELFPAY ==
[2020-12-20 02:09] VITALS: BMI 23.6
--- NOTE | 2021-09-26 13:14 | DI.RAD.S_ITS ---
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 FINDINGS: This blank DEXA report has been sent in error by the PACS system. The correct and complete report will be forthcoming in 1-2 days. Thank you for your patience and understanding. Dictated by: Lucy Umaña MD, PhD on 09/26/2021 at 16:33 Approved by: Lucy Umaña MD, PhD on 09/26/2021 at 16:33
--- NOTE | 2021-09-26 13:14 | DI.MRI.S_ITS ---
PROCEDURE: MR LUMBAR SPINE WO CON INDICATIONS: SPINAL STENOSIS,DISORDERS OF BONE TECHNIQUE: Noncontrast sagittal T1 spin echo and T2 fast echo, sagittal STIR, axial T1 and T2 fast spin echo through the lumbar spine. In cases with scoliosis, additional coronal T2 fast spin echo may be performed. COMPARISON: [facility] (TRANSFER), CR, XR LUMBAR SPINE 2-3V, 09/15/2021, 9:07. FINDINGS: Image quality: Excellent. Alignment and Curvature: There is normal bony alignment. Bone Marrow: Marrow is of normal overall signal. No acute vertebral body compression fractures. Moderate reactive signal within the endplates adjacent to the L1-L2 intervertebral disc. Mild reactive signal within the endplates adjacent to the L2-L3, L3-L4, and L4-L5 intervertebral discs. Mild degenerative marrow edema adjacent to the L4-L5 facet joints, right greater than left. Spinal Cord: Conus medullaris terminates at the upper L1 level. Visualized cord demonstrates normal signal and size. Paraspinous Soft Tissues: No paravertebral masses. T12-L1: Mild disc desiccation. No significant canal, or foraminal stenosis. L1-L2: Severe disc height loss and desiccation. Mild diffuse disc bulge. Mild canal stenosis. Mild bilateral foraminal stenosis. L2-L3: Mild disc desiccation and diffuse disc bulge. Mild facet and ligamentum flavum hypertrophy. Mild canal stenosis. Mild bilateral foraminal stenosis. L3-L4: Mild disc height loss and desiccation. Mild diffuse disc bulge. Mild facet and ligamentum flavum hypertrophy. Mild epidural lipomatosis. Mild canal stenosis. Mild bilateral foraminal stenosis. L4-L5: Mild disc desiccation and diffuse disc bulge. Mild facet and ligamentum flavum hypertrophy. Mild canal stenosis. Moderate bilateral foraminal stenosis. L5-S1: Mild diffuse disc bulge. Mild bilateral facet hypertrophy. No significant canal stenosis. Mild bilateral foraminal stenosis. IMPRESSION: 1. Multilevel degenerative disc and facet disease, as well as ligamentum flavum hypertrophy and epidural lipomatosis. 2. Mild multilevel canal stenoses. 3. Multilevel foraminal stenoses, worst at L4-L5 bilaterally where there are moderate foraminal stenoses. Dictated by: Piedad An M.D. on 09/26/2021 at 14:20 Approved by: Piedad An M.D. on 09/26/2021 at 14:23
== END ==
PROVIDERS: PCP Family Medicine; Referring Provider Physician Assistant Medical; Visit Provider Physician Assistant Medical
DX: M48.061 Spinal stenosis, lumbar region without neurogenic claudication; M48.07 Spinal stenosis, lumbosacral region; M51.36 Other intervertebral disc degeneration, lumbar region; M51.37 Other intervertebral disc degeneration, lumbosacral region; M85.89 Other specified disorders of bone density and structure, multiple sites
CPT/HCPCS: 72148; 77080

== ENCOUNTER → 2022-02-07 10:52 | Outpatient (CLI) | payer MEDICARE, OTHER, SELFPAY ==
[2020-12-20 02:09] VITALS: BMI 23.6
--- NOTE | 2022-02-07 10:53 | DI.CT.S_ITS ---
PROCEDURE: CT CHEST WO CON INDICATIONS: chest x-ray demonstrated solitary pulmonary nodule left side TECHNIQUE: Noncontrast 5 mm thick sections acquired from the pulmonary apices to the posterior costophrenic angles. 1 mm lung window, 5 mm thick coronal and sagittal and 7 mm axial MIP reformats were then acquired. For radiation dose reduction, the following was used: automated exposure control, adjustment of mA and/or kV according to patient size. COMPARISON: [facility] Facility, RG, XR CXR 2V, 01/16/2022, 12:15. FINDINGS: Image quality: Excellent. Lungs and pleura: No pulmonary nodules or masses. A 4 mm calcification in the left upper lobe corresponds with the x-ray abnormality and is consistent with a benign granuloma. No acute air space opacities. No pleural effusions or pneumothorax. Central and peripheral airways are patent and normal in caliber. Mediastinum: Heart size is normal. No pericardial effusion. No mediastinal adenopathy by size criteria. Thoracic aorta and central pulmonary arteries are normal in size. Esophagus is normal in caliber. No hiatal hernia. Bones and chest wall: No suspicious bony lesions. No vertebral body compression fractures. No axillary or supraclavicular adenopathy by size criteria. Thyroid gland is normal. Abdomen: Limited visualization of the upper abdomen shows no acute abnormality. IMPRESSION: IMPRESSION: 1. No pulmonary nodules or pulmonary masses identified. 2. 4 mm benign calcified granuloma corresponds with the abnormality on x-ray 3. No acute abnormality. Dictated by: Rickey Strauss M.D. on 02/09/2022 at 12:34 Approved by: Rickey Strauss M.D. on 02/09/2022 at 12:43
== END ==
PROVIDERS: PCP Family Medicine; Referring Provider Family Medicine; Visit Provider Family Medicine
DX: J98.4 Other disorders of lung (principal)
CPT/HCPCS: 71250